=== PATIENT | male | born 1975 | race Caucasian/White ===

== ENCOUNTER 2023-06-29 12:24 | Inpatient (IN) | payer BC ==
[~2023-06-29 12:24] MED LIST: Iopamidol 370 76% 100 ML VIAL ONE
[2023-06-29 13:16] LABS: Hematocrit 39.6 % (38.8-50.0); Hemoglobin 14.8 g/dL (13.5-17.5); Mean Corpuscular HGB CONC 37.4 g/dL (32.0-36.0); Mean Corpuscular Volume 85.5 fl (81.2-95.1); Mean Platelet Volume 9.4 fl (7.4-10.4); Platelet Count 157 10x3/uL (150-450); Red Blood Cell (RBC) Count 4.63 10x6/uL (4.32-5.72); White Blood Cell (WBC) Count 4.6 10x3/uL (3.5-10.5)
[2023-06-29 13:28] LABS: ALT (SGPT) 107 U/L (8-55); AST (SGOT) 76 U/L (5-34); Albumin 4.6 g/dL (3.5-5.0); Alkaline Phosphatase 62 U/L (40-110); Anion Gap 16 mmol/L (10-20); BUN (Urea Nitrogen) 18 mg/dL (8.9-20.6); Bilirubin, Total 1.4 mg/dL (0.2-1.2); Calc. Creatinine Clearance 0 mL/min (70-130); Calcium 8.9 mg/dL (7.8-10.44); Carbon Dioxide 23 mmol/L (22-29); Chloride 103 mmol/L (98-107); Estimated GFR 85; Globulin 2.4 g/dL (2.4-3.5); Glucose 159 mg/dL (70-105); Potassium 3.6 mmol/L (3.5-5.1); Sodium 138 mmol/L (136-145)
[2023-06-29 13:31] LABS: Troponin I Less than 0.010 ng/mL (< 0.028)
[2023-06-29] MEDS ORDERED: Aspirin Chewable 81 MG TAB ONE (13:32)
[2023-06-29 14:09] LABS: Band 11 % (5-11); Eosinophils 1 % (0-10); Lymphocytes 22 % (21-51); Monocytes 8 % (0-10)
[2023-06-29 14:13] LABS: Neutrophil 49 % (42-75)
[2023-06-29 14:14] LABS: Large Platelets SLIGHT (None Seen); Platelet Adequacy Comment Appears Adequate; RBC Morph Comment Within Normal Limits; Reactive Lymphocytes 7 % (0-10)
[2023-06-29 14:16] LABS: MDiff Complete? YES
[2023-06-29 17:55] LABS: Troponin I Less than 0.010 ng/mL (< 0.028)
[2023-06-29] MEDS: Sodium Chloride 0.9% 1,000 ML IV SCH (19:21)
[2023-06-29 19:28] LABS: SARS-CoV-2 NAA Rapid Test Not Detected (NotDetected)
[2023-06-29 20:48] LABS: Troponin I Less than 0.010 ng/mL (< 0.028)
[2023-06-29] MEDS ORDERED: Acetaminophen 325 MG TAB ONE (23:57)
[2023-06-30] MEDS: Acetaminophen 325 MG TAB PO PRN (00:01)
[2023-06-30 04:16] LABS: Hematocrit 34.3 % (38.8-50.0); Hemoglobin 12.5 g/dL (13.5-17.5); Mean Corpuscular HGB CONC 36.4 g/dL (32.0-36.0); Mean Corpuscular Hemoglobin 31.4 pg (27.0-33.0); Mean Corpuscular Volume 86.2 fl (81.2-95.1); Mean Platelet Volume 9.2 fl (7.4-10.4); Platelet Count 153 10x3/uL (150-450); RBC Distribution Width 11.9 % (11.5-14.5); Red Blood Cell (RBC) Count 3.98 10x6/uL (4.32-5.72); White Blood Cell (WBC) Count 4.4 10x3/uL (3.5-10.5)
[2023-06-30 04:19] LABS: MDiff Complete? YES
[2023-06-30 04:31] LABS: ALT (SGPT) 75 U/L (8-55); AST (SGOT) 48 U/L (5-34); Albumin 3.8 g/dL (3.5-5.0); Alkaline Phosphatase 52 U/L (40-110); Anion Gap 15 mmol/L (10-20); BUN (Urea Nitrogen) 20 mg/dL (8.9-20.6); Bilirubin, Total 1.4 mg/dL (0.2-1.2); CRP (Inflammatory) 3.42 mg/dL (= or < 0.5); Calc. Creatinine Clearance 94 mL/min (70-130); Calcium 8.3 mg/dL (7.8-10.44); Carbon Dioxide 22 mmol/L (22-29); Chloride 107 mmol/L (98-107); Estimated GFR 61; Globulin 2.3 g/dL (2.4-3.5); Glucose 141 mg/dL (70-105); Potassium 3.4 mmol/L (3.5-5.1); Protein, Total 6.1 g/dL (6.0-8.3); Sodium 141 mmol/L (136-145)
[2023-06-30 04:46] LABS: Band 8 % (5-11); Eosinophils 3 % (0-10); Lymphocytes 27 % (21-51); Monocytes 5 % (0-10); Neutrophil 41 % (42-75); Reactive Lymphocytes 16 % (0-10)
[2023-06-30 04:50] LABS: Large Platelets SLIGHT (None Seen); Platelet Adequacy Comment Appears Adequate; RBC Morph Comment Within Normal Limits
[2023-06-30] MEDS ORDERED: Acetaminophen 325 MG TAB ONE (09:29)
[2023-06-30] MEDS ORDERED: Glucagon 1 MG/ML KIT IM PRN (10:21)
[2023-06-30] MEDS ORDERED: HumaLOG 300 UNITS/3 ML VIAL SC PRN ×2 (10:21)
[2023-06-30] MEDS ORDERED: Dextrose 5% in Water 1,000 ML IV PRN (10:21)
[2023-06-30] MEDS ORDERED: Dextrose 50% Abboject 50 ML SYRINGE SLOW IVP PRN (10:21)
[2023-06-30] MEDS: Sodium Chloride 0.9% 1,000 ML IV SCH (11:56)
[2023-06-30] MEDS: Magnesium 2 GM/50 ML(in water) 2 GM in Premix 1 BAG IVPB SCH (16:45)
[2023-06-30] MEDS: Aspirin/APAP/Caffeine Tab (Excedrin Migraine) PO PRN (16:52)
[2023-06-30 17:45] LABS: Bilirubin Neg (Negative); Blood, Urine Negative (Negative); Clarity Clear (Clear); Glucose, Urine (Dipstick) 250 mg/dL (Negative); Ketone, Urine Negative (Negative); Leukocyte Negative (Negative); Nitrite Negative (Negative); Protein, Urine (Dipstick) 15 mg/dl (Neg-Trace); Specific Gravity, Urine 1.005 (1.005-1.030); Urobilinogen Normal mg/dL (Less than 2)
[2023-06-30 18:03] LABS: Bacteria/HPF Rare-Few HPF (None Seen); CAUTI Indications for Culture Fever or rigors; RBC/HPF None Seen HPF (0-3); Squamous Epithelial 0-3 HPF (0-3); Urine Culture Reflex No No; WBC/HPF 0-3 HPF (0-3)
[2023-06-30] MEDS: SUMAtriptan Succinate 6 MG/0.5 ML VIAL SC SCH (18:10)
[2023-07-01] MEDS: Dexamethasone 4 mg/ml Vial SLOW IVP PRN (04:05)
[2023-07-01] MEDS: Valproate Sodium 500 MG in Sodium Chloride 0.9% 100 ML IVPB PRN (04:49)
[2023-07-01 08:51] LABS: Anion Gap 15 mmol/L (10-20); BUN (Urea Nitrogen) 11 mg/dL (8.9-20.6); Calc. Creatinine Clearance 146 mL/min (70-130); Calcium 8.3 mg/dL (7.8-10.44); Carbon Dioxide 23 mmol/L (22-29); Chloride 107 mmol/L (98-107); Estimated GFR 103; Glucose 255 mg/dL (70-105); Potassium 3.5 mmol/L (3.5-5.1); Sodium 141 mmol/L (136-145)
[2023-07-01 09:02] LABS: #Eosinphils 0.1 10x3/uL (0.0-0.5); #Monocytes 0.2 10x3/uL (0.0-1.1); #Neutrophils 2.4 10x3/uL (1.5-8.4); %Basophils 0.7 % (0.0-2.0); %Eosinophils 1.2 % (0.0-6.0); %Lymphocytes 37.5 % (18.0-47.0); %Monocytes 3.8 % (0.0-10.0); %Neutrophils 56.6 % (40.0-75.0); Hematocrit 35.7 % (38.8-50.0); Hemoglobin 13.1 g/dL (13.5-17.5); Mean Corpuscular HGB CONC 36.7 g/dL (32.0-36.0); Mean Corpuscular Hemoglobin 31.3 pg (27.0-33.0); Mean Corpuscular Volume 85.4 fl (81.2-95.1); Mean Platelet Volume 9.2 fl (7.4-10.4); Platelet Count 169 10x3/uL (150-450); Red Blood Cell (RBC) Count 4.18 10x6/uL (4.32-5.72); White Blood Cell (WBC) Count 4.2 10x3/uL (3.5-10.5)
[2023-07-01] MEDS: Famotidine 20 MG TAB PO SCH (09:13)
[2023-07-01] MEDS: FLU VACC QS2023-24(6MOS UP)/PF 60 MCG/0.5 ML SYRINGE IM ONE (09:14)
[2023-07-01] MEDS: metFORMIN 500 MG TAB PO SCH (16:16)
[2023-07-01 17:02] VITALS: BP 130/80; TEMP 97.7
[2023-07-02] MEDS ORDERED: Atorvastatin Calcium 40 MG TAB PO SCH (09:00)
[2023-07-02] MEDS ORDERED: Glimepiride 4 MG TAB PO SCH (09:00)
== END 2023-07-01 17:00 | disposition home or self-care (01) | DRG 866 ==
LOC: CSHERS 12:24 → CSHERHOLD 17:00 → CSHTELE 06-30 13:33 → OBSVTOIN 07-01 12:17
PROVIDERS: ADMIT Internal Medicine; ATTEND Family Medicine
DX: B34.9 Viral infection, unspecified (principal); N17.9 Acute kidney failure, unspecified; E11.9 Type 2 diabetes mellitus without complications; E78.00 Pure hypercholesterolemia, unspecified; R53.83 Other fatigue; R19.7 Diarrhea, unspecified; D64.9 Anemia, unspecified; R94.31 Abnormal electrocardiogram [ECG] [EKG]; G43.909 Migraine, unspecified, not intractable, without status migrainosus; Z11.52 Encounter for screening for COVID-19; R74.01 Elevation of levels of liver transaminase levels; I10 Essential (primary) hypertension; Z79.899 Other long term (current) drug therapy; Z90.49 Acquired absence of other specified parts of digestive tract; Z98.890 Other specified postprocedural states; Z82.49 Family history of ischemic heart disease and other diseases of the circulatory system
CPT/HCPCS: 36415; 36416; 70450; 71045; 71275; 76700; 80048; 80053; 81001; 83880; 84443; 84484; 85025; 85379; 86140; 87633; 93005; 93306; 96372; 96374; 96375; G0378; J0780; J1100; J3030; J3475; J3490; J7050; Q9967